=== PATIENT | male | born 1955 ===

== ENCOUNTER 2017-03-20 20:23 | Inpatient (IN) | payer OTHER ==
--- NOTE | 2017-03-20 21:30 | C.PDOC ---
History Of Present Illness Patient is a 61 y/o male, with a Hx of asthma, who presents to the ED with a complaint of SOB. Patient was seen by PMD a few days ago and was given Prednisone and Mucinex with minimal relief. Patient is currently speaking in full sentences and tolerating PO. No other physical complaints at this time. Time Seen by Provider: 03/20/17 21:30 Chief Complaint (Nursing): Shortness Of Breath History Per: Patient History/Exam Limitations: no limitations Onset/Duration Of Symptoms: Days Current Symptoms Are (Timing): Still Present Initiating Event: Upper Respiratory Illness Exacerbating Factor(s): Coughing Current Respiratory Medications: See Home Med List Severity: Moderate Pain Scale Rating Of: 4 Associated Symptoms: denies: Fever, Chills Reports Recently: Treated By A Physician Recent travel outside of the [place]: No Additional History Per: Patient Past Medical History Reviewed: Historical Data, Nursing Documentation, Vital Signs Vital Signs: Last Vital Signs Temp 98.6 F 03/20/17 20:50 Pulse 79 03/20/17 20:50 Resp 16 03/20/17 21:55 BP 157/71 H 03/20/17 20:50 Pulse Ox 99 03/20/17 21:55 - Medical History PMH: Asthma, Hypercholesterolemia Surgical History: No Surg Hx Family History: States: No Known Family Hx - Social History Hx Tobacco Use: No (former smoker) Hx Alcohol Use: Yes Hx Substance Use: No - Immunization History Hx Tetanus Toxoid Vaccination: No Hx Influenza Vaccination: Yes Hx Pneumococcal Vaccination: Yes Review Of Systems Constitutional: Negative for: Fever, Chills Eyes: Negative for: Redness ENT: Negative for: Throat Pain Cardiovascular: Negative for: Chest Pain Respiratory: Positive for: Shortness of Breath Gastrointestinal: Negative for: Nausea, Vomiting Genitourinary: Negative for: Dysuria Musculoskeletal: Negative for: Back Pain Skin: Negative for: Rash Neurological: Negative for: Weakness Psych: Negative for: Anxiety Physical Exam - Physical Exam Appears: Non-toxic, No Acute Distress Skin: Warm, Dry Head: Normacephalic Eye(s): bilateral: Normal Inspection Oral Mucosa: Moist Neck: Trachea Midline, Supple Chest: Symmetrical Cardiovascular: Rhythm Regular Respiratory: No Rales, No Rhonchi, Wheezing Gastrointestinal/Abdominal: Soft, No Tenderness, No Distention, No Guarding Back: No CVA Tenderness Extremity: Normal ROM Extremity: Bilateral: Atraumatic, Normal Color And Temperature Pulses: Left Dorsalis Pedis: Normal, Right Dorsalis Pedis: Normal Neurological/Psych: Oriented x3, Normal Speech Gait: Steady ED Course And Treatment - Laboratory Results Result Diagrams: 03/20/17 21:50 03/20/17 21:50 ECG: Interpreted By Me, Viewed By Me O2 Sat by Pulse Oximetry: 97 Pulse Ox Interpretation: Normal - Radiology CXR: Interpreted by Me, Viewed By Me CXR Interpretation: No: Infiltrates, Fracture, Pnemothorax Progress Note: Plan: EKG, CXR, and blood work ordered. Albuterol, ecotrin, medrol, and neb treatment administered. Disposition Discussed With .: Sofi Lucas Comment: accepted the pt on her service and took over the care at 11:33 PM Doctor Will See Patient In The: Hospital Counseled Patient/Family Regarding: Studies Performed, Diagnosis - Disposition Disposition: HOSPITALIZED Disposition Time: 21:30 Condition: FAIR Forms: [employer] (Portuguese) - POA Present On Arrival: Poor Glycemic Control - Clinical Impression Clinical Impression: Dyspnea, Bronchitis, Asthma exacerbation, Hyperglycemia - Scribe Statement The provider has reviewed the documentation as recorded by the Scribe Joya Pereira All medical record entries made by the Scribe were at my direction and personally dictated by me. I have reviewed the chart and agree that the record accurately reflects my personal performance of the history, physical exam, medical decision making, and the department course for this patient. I have also personally directed, reviewed, and agree with the discharge instructions and disposition. Decision To Admit - Pt Status Changed To: Hospital Disposition Of: Inpatient - Admit Certification Admit to Inpatient:: After my assessment, the patient will require hospitalization for at least two midnights. This is because of the severity of symptoms shown, intensity of services needed, and/or the medical risk in this patient being treated as an outpatient. - InPatient: Physician Admission Certification: I certify that this patient requires 2 or more midnights of care for the following reason:: After my assessment, the patient will require hospitalization for at least two midnights. This is because of the severity of symptoms shown, intensity of services needed, and/or the medical risk in this patient being treated as an outpatient. - . Bed Request Type: Regular Admitting Physician: Sofi Lucas Patient Diagnosis: Dyspnea, Bronchitis, Asthma exacerbation, Hyperglycemia
[2017-03-20] MEDS ORDERED: Aspirin 325 mg EC Tablets PO STA (21:40)
[2017-03-20] MEDS: Albuterol-Ipratrop 3 mg / 0.5 (3 ml) UD IH SCH (21:56)
[2017-03-20] MEDS ORDERED: Albuterol-Ipratrop 3 mg / 0.5 (3 ml) UD ONE (21:59)
[2017-03-20 22:01] LABS: BASO % 0.3 % (0.0-2.0); EOS # 0.2 K/uL (0.0-0.7); EOS % 1.4 % (0.0-4.0); HEMOGLOBIN 13.9 g/dL (12.0-18.0); LYMPH # 1.6 K/uL (1.0-4.3); LYMPH % 11.5 % (20.0-40.0); MEAN CELL VOLUME 94.1 fL (80.0-94.0); MEAN CORPUSCULAR HEMOGLOBIN 32.9 pg (27.0-31.0); MEAN CORPUSCULAR HGB CONC 34.9 g/dL (33.0-37.0); MEAN PLATELET VOLUME 7.9 fL (7.2-11.7); MONO # 1.3 K/uL (0.0-0.8); MONO % 9.3 % (0.0-10.0); NEUT % 77.5 % (50.0-75.0); RBC 4.24 Mil/uL (4.40-5.90); RED CELL DISTRIBUTION WIDTH 13.2 % (11.5-14.5); WHITE BLOOD COUNT 14.2 K/uL (4.8-10.8)
[2017-03-20] MEDS ORDERED: Aspirin 325 mg EC Tablets PO ONE (22:02)
[2017-03-20 22:08] LABS: VENOUS BLOOD GAS BASE EXCESS 3.7 mmol/L (0.0-2.0); VENOUS BLOOD GAS PCO2 43 mmHg (40-60); VENOUS BLOOD GAS PO2 30 mm/Hg (30-55); VENOUS BLOOD PH 7.43 (7.32-7.43)
[2017-03-20 23:02] LABS: ALB/GLOB RATIO 1.2 (1.0-2.1); ALBUMIN 3.6 g/dL (3.5-5.0); ALT/SGPT 29 U/L (21-72); AST/SGOT 32 U/L (17-59); BLOOD UREA NITROGEN 22 mg/dL (9-20); CALCIUM 8.8 mg/dl (8.6-10.4); GFR AFRICAN-AMERICAN > 60; GFR NON-AFRICAN AMERICAN > 60; MAGNESIUM 1.9 mg/dL (1.6-2.3)
[2017-03-20 23:13] LABS: B-TYPE NATRIURETIC PEPTIDE 67.3 pg/mL (0-900)
[2017-03-20] MEDS ORDERED: Piperacillin/Tazobact 3.375 gm 100 ML IVPB STA (23:29)
[2017-03-20] MEDS ORDERED: Piperacill/Tazo 3.375gm in Dex 3.375 GM/50 ML BAG IVPB STA (23:32)
[2017-03-21 05:04] VITALS: RESP 20
[2017-03-21] MEDS ORDERED: guaiFENesin DM 100 mg-10 mg/5 ml UD PO ONE (06:07)
[2017-03-21] MEDS ORDERED: Pneumococcal 23-Valent Vaccine IM ONE (06:15)
--- NOTE | 2017-03-21 06:42 | RAD ---
Chest x-ray single frontal view History: Shortness of breath. Comparison: None available. Findings: No focal infiltrate or effusion. Heart size within normal limits. Degenerative changes in the spine with paravertebral osteophytes. Degenerative changes in the bilateral acromioclavicular joint spaces. Impression: No focal infiltrate or effusion.
[2017-03-21] MEDS: (Novolin R) Insulin Human Regular 100 units/ml vial SC SCH ×4 (08:25→21:53)
[2017-03-21] MEDS ORDERED: Home Med 1 UNIT (Ramipril [Altace] 5 MG) PO SCH (10:00)
[2017-03-21] MEDS ORDERED: EMPAGLIFLOZIN PO SCH (10:00)
[2017-03-21] MEDS ORDERED: Home Med 1 UNIT (Atorvastatin [Lipitor] 20 MG) PO SCH (10:00)
[2017-03-21] MEDS ORDERED: METFORMIN HCL PO SCH (10:00)
[2017-03-21] MEDS: Enoxaparin 40 mg Syringe SC SCH (11:15)
[2017-03-21] MEDS: MethylPREDNISolone 40 mg Vial IVP SCH ×2 (11:19→18:15)
[2017-03-21] MEDS: Albuterol-Ipratrop 3 mg / 0.5 (3 ml) UD INH SCH ×2 (11:47→16:33)
[2017-03-21] MEDS: Piperacill/Tazo 3.375gm in Dex 3.375 GM/50 ML BAG IVPB SCH ×2 (14:33→21:51)
--- NOTE | 2017-03-21 15:18 | CP.PCM.CON ---
History of Present Illness - History of Present Illness History of Present Illness: reason for consultation: shortness of breath 61-year-old male with asthma presented to emergency room with worsening shortness of breath not responding to steroids and inhalers. Patient states he feels much better and wants to go home. Last peak flow 300. Denies any chest pain, denies fever chills, denies cough Past Patient History - Past Medical History & Family History Past Medical History?: Yes - Past Social History Smoking Status: Former Smoker - CARDIAC Hx Cardiac Disorders: Yes Hx Hypercholesterolemia: Yes - PULMONARY Hx Respiratory Disorders: Yes Hx Asthma: Yes - NEUROLOGICAL Hx Neurological Disorder: No - HEENT Hx HEENT Problems: No - RENAL Hx Chronic Kidney Disease: No - ENDOCRINE/METABOLIC Hx Endocrine Disorders: Yes Hx Diabetes Mellitus Type 2: Yes - HEMATOLOGICAL/ONCOLOGICAL Hx Blood Disorders: No - INTEGUMENTARY Hx Dermatological Problems: No - MUSCULOSKELETAL/RHEUMATOLOGICAL Hx Musculoskeletal Disorders: No Hx Falls: No - GASTROINTESTINAL Hx Gastrointestinal Disorders: No - GENITOURINARY/GYNECOLOGICAL Hx Genitourinary Disorders: No - PSYCHIATRIC Hx Psychophysiologic Disorder: No Hx Substance Use: No - SURGICAL HISTORY Hx Surgeries: No - ANESTHESIA Hx Anesthesia: No Meds Allergies/Adverse Reactions: Allergies Allergy/AdvReac Type Severity Reaction Status Date / Time No Known Allergies Allergy Verified 03/20/17 20:57 - Medications Medications: Current Medications Acetaminophen (Tylenol 325mg Tab) 650 mg PO Q6 PRN PRN Reason: Pain, moderate (4-7) Albuterol/Ipratropium (Duoneb 3 Mg/0.5 Mg (3 Ml) Ud) 3 ml INH RQ8 [facility] Last Admin: 03/21/17 11:47 Dose: 3 ml Aspirin (Aspirin Chewable) 81 mg PO DAILY [facility] Enalapril Maleate (Vasotec) 10 mg PO DAILY [facility] Enoxaparin Sodium (Lovenox) 40 mg SC DAILY [facility] Last Admin: 03/21/17 11:15 Dose: 40 mg Piperacillin Sod/Tazobactam Sod (Zosyn 3.375 Gm Iv Premix) 3.375 gm in 50 mls @ 100 mls/hr IVPB Q8 [facility] Last Admin: 03/21/17 14:33 Dose: 100 mls/hr Insulin Human Regular (Novolin R) 0 unit SC ACHS [facility] PRN Reason: Protocol Last Admin: 03/21/17 12:30 Dose: 3 unit Metformin HCl (Glucophage) 1,000 mg PO DAILY [facility] Last Admin: 03/21/17 11:19 Dose: 1,000 mg Methylprednisolone (Solu-Medrol) 40 mg IVP Q8H [facility] Last Admin: 03/21/17 11:19 Dose: 40 mg Pneumococcal Polyvalent Vaccine (Pneumovax 23 Vaccine) 0.5 ml IM .ONCE ONE Stop: 03/23/17 10:01 Rosuvastatin Calcium (Crestor) 10 mg PO [facility] Sitagliptin Phosphate (Januvia) 100 mg PO DAILY [facility] Last Admin: 03/21/17 10:13 Dose: 100 mg Results - Vital Signs Recent Vital Signs: Last Vital Signs Temp 97.9 F 03/21/17 04:50 Pulse 74 03/21/17 04:50 Resp 20 03/21/17 04:50 BP 127/73 03/21/17 04:50 Pulse Ox 97 03/21/17 04:50 - Labs Result Diagrams: 03/20/17 21:50 03/20/17 21:50 Labs: Laboratory Results - last 24 hr 03/20/17 03/20/17 03/20/17 21:50 21:50 22:05 WBC 14.2 H RBC 4.24 L Hgb 13.9 Hct 39.8 MCV 94.1 H MCH 32.9 H MCHC 34.9 RDW 13.2 Plt Count 349 MPV 7.9 Neut % (Auto) 77.5 H Lymph % (Auto) 11.5 L [place] % (Auto) 9.3 Eos % (Auto) 1.4 Baso % (Auto) 0.3 Neut # 11.0 H Lymph # 1.6 [place] # 1.3 H Eos # 0.2 Baso # 0.0 pO2 30 VBG pH 7.43 VBG pCO2 43 VBG HCO3 26.8 VBG Total CO2 29.8 H VBG O2 Sat (Calc) 60.9 VBG Base Excess 3.7 H VBG Potassium 3.6 Glucose 287 H Lactate 1.0 Sodium 128 L 134.0 Potassium 3.6 Chloride 96 L 102.0 Carbon Dioxide 26 Anion Gap 9 L BUN 22 H Creatinine 0.9 Est GFR ( Amer) > 60 Est GFR (Non-Af Amer) > 60 POC Glucose (mg/dL) Random Glucose 276 H Calcium 8.8 Magnesium 1.9 Total Bilirubin 0.4 AST 32 ALT 29 Alkaline Phosphatase 107 Troponin I < 0.0120 NT-Pro-B Natriuret Pep 67.3 Total Protein 6.7 Albumin 3.6 Globulin 3.1 Albumin/Globulin Ratio 1.2 Venous Blood Potassium 3.6 03/21/17 08:03 WBC RBC Hgb Hct MCV MCH MCHC RDW Plt Count MPV Neut % (Auto) Lymph % (Auto) [place] % (Auto) Eos % (Auto) Baso % (Auto) Neut # Lymph # [place] # Eos # Baso # pO2 VBG pH VBG pCO2 VBG HCO3 VBG Total CO2 VBG O2 Sat (Calc) VBG Base Excess VBG Potassium Glucose Lactate Sodium Potassium Chloride Carbon Dioxide Anion Gap BUN Creatinine Est GFR ( Amer) Est GFR (Non-Af Amer) POC Glucose (mg/dL) 276 H Random Glucose Calcium Magnesium Total Bilirubin AST ALT Alkaline Phosphatase Troponin I NT-Pro-B Natriuret Pep Total Protein Albumin Globulin Albumin/Globulin Ratio Venous Blood Potassium Assessment & Plan (1) Asthma exacerbation Status: Acute Comment: clinically much better. Switch to prednisone. Inhaled steroids. Antibiotics. Peak flow
[2017-03-22] MEDS: Albuterol-Ipratrop 3 mg / 0.5 (3 ml) UD INH SCH ×2 (00:20→08:48)
[2017-03-22] MEDS: MethylPREDNISolone 40 mg Vial IVP SCH ×2 (03:45→12:00)
--- NOTE | 2017-03-22 05:49 | HP ---
CHIEF COMPLAINT: Shortness of breath, coughing. HISTORY OF PRESENT ILLNESS: Mr. Geoffrey Rizo is a 61-year-old male with history of asthma, came to the emergency room complaining about shortness of breath. As per patient, he was seen by primary care physician 2 days ago and was given prednisone and Mucinex with minimal relief. Patient is currently speaking in full sentence and tolerating p.o. No nausea, vomiting, diarrhea. No hematuria or hematochezia. No swelling of the leg. No chest pain or palpitation. No headache. No dizziness. PAST MEDICAL HISTORY: Asthma, hypercholesterolemia. PAST SURGICAL HISTORY: None. FAMILY HISTORY: Father and mother noncontributory. SOCIAL HISTORY: History of smoking, but now no smoking. Alcohol, yes. Substance abuse, no. ALLERGIES: PATIENT IS NOT ALLERGIC TO ANY MEDICATIONS. HOME MEDICATIONS: Altace, Lantus, Lipitor, Januvia, metformin. REVIEW OF SYSTEMS: Patient is seen and examined at the bedside in his room. Still coughing with shortness of breath. No headache. No dizziness. No nausea, vomiting, diarrhea. No chest pain. No palpitation. No fever. No chills. No hematuria, hematochezia. PHYSICAL EXAMINATION: VITAL SIGNS: Temperature 98.7, pulse 88, blood pressure 120/74, respiratory rate 20. HEENT: Head; normocephalic, atraumatic. Eyes; PERRLA. Extraocular muscles intact. Conjunctivae clear. Nose patent. Mucous membranes moist. NECK: Supple. No carotid bruits, JVD, or thyromegaly. CHEST: Bilaterally symmetrical. HEART: S1 and S2 positive. LUNGS: Clear to auscultation. ABDOMEN: Soft, bowel sound present. No organomegaly. EXTREMITIES: No edema, no cyanosis. NEUROLOGICAL: The patient is awake, alert. Moving all 4 extremities. No focal deficits. LABORATORY DATA: White blood cell 14.2, hemoglobin 13.9, hematocrit 39.8, platelets 349. Sodium 128, potassium 3.6, BUN 22, creatinine 0.9, glucose 264. ASSESSMENT AND PLAN: Mr. Geoffrey Rizo is a 61-year-old male with leukocytosis, anemia, hyponatremia, hypochloremia, renal insufficiency, hyperglycemia, came with shortness of breath, exacerbation of asthma. Seen by Dr. Quoc Gray, layaway clerk. Clinically improving. Continue inhaled steroids, antibiotics, peak flow. Repeat labs. We will follow. Sofi Lucas MD
[2017-03-22] MEDS: Piperacill/Tazo 3.375gm in Dex 3.375 GM/50 ML BAG IVPB SCH (06:05)
[2017-03-22 07:01] LABS: URINE BILIRUBIN NEGATIVE (NEGATIVE); URINE BLOOD NEGATIVE (NEGATIVE); URINE CLARITY Clear (Clear); URINE COLOR Straw (YELLOW); URINE GLUCOSE (UA) 3+ mg/dL (Normal); URINE LEUKOCYTE ESTERASE NEG Leu/uL (Negative); URINE NITRATE NEGATIVE (NEGATIVE); URINE PROTEIN NEGATIVE (NEGATIVE); URINE UROBILINOGEN NORMAL mg/dL (0.2-1.0)
[2017-03-22] MEDS: (Novolin R) Insulin Human Regular 100 units/ml vial SC SCH ×2 (07:56→12:13)
[2017-03-22 08:22] LABS: BASO % 0.2 % (0.0-2.0); HEMOGLOBIN 13.7 g/dL (12.0-18.0); LYMPH # 0.6 K/uL (1.0-4.3); LYMPH % 3.8 % (20.0-40.0); MEAN CELL VOLUME 94.6 fL (80.0-94.0); MEAN CORPUSCULAR HEMOGLOBIN 31.5 pg (27.0-31.0); MEAN CORPUSCULAR HGB CONC 33.3 g/dL (33.0-37.0); MEAN PLATELET VOLUME 8.8 fL (7.2-11.7); MONO # 0.5 K/uL (0.0-0.8); MONO % 3.4 % (0.0-10.0); NEUT # 14.6 K/uL (1.8-7.0); NEUT % 92.6 % (50.0-75.0); PLATELET COUNT 403 K/uL (130-400); RBC 4.34 Mil/uL (4.40-5.90); RED CELL DISTRIBUTION WIDTH 13.6 % (11.5-14.5); WHITE BLOOD COUNT 15.8 K/uL (4.8-10.8)
[2017-03-22 08:36] LABS: IRON 70 ug/dL (49-181)
[2017-03-22 08:44] LABS: % IRON SATURATION 25 (20-55); TOTAL IRON BINDING CAPACITY 278 ug/dL (250-450)
[2017-03-22 08:47] LABS: ALB/GLOB RATIO 1.1 (1.0-2.1); ALBUMIN 3.4 g/dL (3.5-5.0); ALT/SGPT 32 U/L (21-72); AST/SGOT 16 U/L (17-59); BLOOD UREA NITROGEN 22 mg/dL (9-20); CALCIUM 8.8 mg/dl (8.6-10.4); GFR AFRICAN-AMERICAN > 60; GFR NON-AFRICAN AMERICAN > 60; HDL CHOLESTEROL 43 mg/dL (30-70)
[2017-03-22 08:54] LABS: LDL CHOLESTEROL 72 mg/dL (0-129)
[2017-03-22 09:48] VITALS: BP 132/67
[2017-03-22] MEDS: Enoxaparin 40 mg Syringe SC SCH (09:49)
[2017-03-22 09:53] LABS: FOLATE 13.4 ng/mL
[2017-03-22] MEDS ORDERED: EMPAGLIFLOZIN PO SCH (10:00)
[2017-03-22] MEDS ORDERED: METFORMIN HCL PO SCH (10:00)
[2017-03-22 10:19] VITALS: PULSE 84; TEMP 97.8; O2SAT 95
[2017-03-22 11:17] LABS: BANDS 3 % (0-2); EOSINOPHIL 1 % (0-4); LYMPHOCYTE 3 % (20-40); MONOCYTE 3 % (0-10); NEUTROPHIL 90 % (50-75); PLATELET ESTIMATE NORMAL (NORMAL); TOTAL CELLS COUNTED 100
[2017-03-22 11:19] LABS: ANISOCYTOSIS SLIGHT; HYPOCHROMIC SLIGHT; LARGE PLATELETS PRESENT; POLYCHROMIC SLIGHT; TOXIC GRANULATION PRESENT
[2017-03-22] MEDS ORDERED: Piperacillin/Tazobact 3.375 GM in Sodium Chloride 0.9% 100 ML IVPB SCH (14:00)
[2017-03-23] MEDS ORDERED: Pneumococcal 23-Valent Vaccine IM ONE (10:00)
== END 2017-03-22 14:45 | disposition left against medical advice (07) | DRG 202 ==
LOC: C.ER 20:23 → C.9E 23:31 → C.3T 03-21 04:24
PROVIDERS: ADMIT Internal Medicine; ATTEND Internal Medicine
DX: J45.901 Unspecified asthma with (acute) exacerbation (principal); E87.1 Hypo-osmolality and hyponatremia; E11.65 Type 2 diabetes mellitus with hyperglycemia; E78.00 Pure hypercholesterolemia, unspecified; Z87.891 Personal history of nicotine dependence; N28.9 Disorder of kidney and ureter, unspecified; D72.829 Elevated white blood cell count, unspecified; Z79.4 Long term (current) use of insulin

== ENCOUNTER 2018-05-14 06:42 | Observation (INO) | payer SELFPAY ==
[2018-05-14] MEDS ORDERED: Albuterol-Ipratrop 3 mg / 0.5 (3 ml) UD INH STA ×2 (07:23→07:48)
--- NOTE | 2018-05-14 07:27 | C.PDOC ---
History Of Present Illness 63 y/o male with a PMHx of diabetes and asthma, presents to the ED for evaluation of cough and congestion for 5 days. Associated with a sore throat and subjective fever. Cough is productive of yellow sputum. No other complaints. Otherwise patient denies any chest pain, SOB, nausea, vomiting, palpitations, or urinary symptoms. Time Seen by Provider: 05/14/18 07:16 Chief Complaint (Nursing): Cough, Cold, Congestion History Per: Patient History/Exam Limitations: no limitations Onset/Duration Of Symptoms: Days (x5) Current Symptoms Are (Timing): Still Present Location Of Pain: Throat Associated Symptoms: Fever, Cough, Sputum, Nasal Congestion Past Medical History Reviewed: Historical Data, Nursing Documentation, Vital Signs Vital Signs: Last Vital Signs Temp 98.5 F 05/14/18 06:48 Pulse 90 05/14/18 06:48 Resp 18 05/14/18 06:48 BP 149/60 05/14/18 06:48 Pulse Ox 95 05/14/18 06:48 - Medical History PMH: Asthma, Hypercholesterolemia Denies: Chronic Kidney Disease Family History: States: Unknown Family Hx - Social History Hx Tobacco Use: No (former smoker) Hx Alcohol Use: Yes (occasionally) Hx Substance Use: No - Immunization History Hx Tetanus Toxoid Vaccination: No Hx Influenza Vaccination: No Hx Pneumococcal Vaccination: Yes Review Of Systems Except As Marked, All Systems Reviewed And Found Negative. Constitutional: Positive for: Fever Eyes: Negative for: Vision Change ENT: Positive for: Nose Congestion, Throat Pain. Negative for: Ear Pain, Ear D ischarge Cardiovascular: Negative for: Chest Pain Respiratory: Positive for: Cough, Sputum. Negative for: Shortness of Breath Gastrointestinal: Negative for: Nausea, Vomiting, Abdominal Pain, Diarrhea Genitourinary: Negative for: Dysuria, Hematuria Musculoskeletal: Negative for: Back Pain Neurological: Negative for: Weakness, Numbness Physical Exam - Physical Exam Appears: Non-toxic, No Acute Distress Skin: Warm, Dry, No Rash Head: Atraumatic, Normacephalic Eye(s): bilateral: Normal Inspection, PERRL, EOMI Oral Mucosa: Moist Throat: Erythema (Mild pharyngeal erythema), No Exudate Neck: Normal ROM, Supple Chest: Symmetrical Cardiovascular: Rhythm Regular, No Murmur Respiratory: Decreased Breath Sounds (Diminished at the bases bilaterally), No Accessory Muscle Use, No Rhonchi, No Wheezing, Other (Speaking in full sentences) Gastrointestinal/Abdominal: Soft, No Tenderness, No Distention Extremity: Bilateral: Atraumatic, Normal Color And Temperature Pulses: Left Radial: Normal, Right Radial: Normal Neurological/Psych: Oriented x3, Normal Speech, Normal Cranial Nerves Gait: Steady ED Course And Treatment - Laboratory Results Result Diagrams: 05/14/18 08:03 05/14/18 08:03 ECG: Interpreted By Me ECG Rhythm: Sinus Rhythm Interpretation Of ECG: no ST or T wave changes Rate From EC O2 Sat by Pulse Oximetry: 95 (via NC) Pulse Ox Interpretation: Normal Medical Decision Making Medical Decision Making: Impression: Cough, Fever Initial Plan: - Flu swab - Rapid strep test - Chest x-ray - Duoneb x 1 - 50 mg PO prednisone CXR shows +infiltrate. Added on blood work, cultures, and EKG. Patient started on IV zithro and rocephin. Additional duonebs ordered. aceted by dr browne peak flow 200 sp nebss Disposition - Disposition Disposition: HOSPITALIZED Disposition Time: 11:00 Condition: STABLE - Clinical Impression Clinical Impression: Asthma, Pneumonia - Scribe Statement The provider has reviewed the documentation as recorded by the Zenia Alexander Provider Attestation: All medical record entries made by the Zenia were at my direction and personally dictated by me. I have reviewed the chart and agree that the record accurately reflects my personal performance of the history, physical exam, medical decision making, and the department course for this patient. I have also personally directed, reviewed, and agree with the discharge instructions and disposition. Decision To Admit - Pt Status Changed To: Hospital Disposition Of: Inpatient - Admit Certification Admit to Inpatient:: After my assessment, the patient will require hospitalization for at least two midnights. This is because of the severity of symptoms shown, intensity of services needed, and/or the medical risk in this patient being treated as an outpatient. - InPatient: Physician Admission Certification: I certify that this patient requires 2 or more midnights of care for the following reason:: need iv antibiotics - . Bed Request Type: Regular Admitting Physician: Junaid Browne Patient Diagnosis: Asthma, Pneumonia
[2018-05-14] MEDS ORDERED: cefTRIAXone IV 1 gm in Dextros 50 ML IVPB ONE (07:44)
[2018-05-14] MEDS ORDERED: Azithromycin 500 MG in Sodium Chloride 0.9% 250 ML IVPB STA (07:44)
[2018-05-14] MEDS ORDERED: Albuterol-Ipratrop 3 mg / 0.5 (3 ml) UD ONE (07:45)
[2018-05-14] MEDS ORDERED: Azithromycin 500mg/250ML NS 500 MG/250 ML BAG IVPB ONE (07:52)
[2018-05-14 08:12] LABS: BASO % 0.3 % (0.0-2.0); EOS % 0.2 % (0.0-4.0); HEMOGLOBIN 13.2 g/dL (12.0-18.0); LYMPH # 1.3 K/uL (1.0-4.3); LYMPH % 9.7 % (20.0-40.0); MEAN CELL VOLUME 92.7 fL (80.0-94.0); MEAN CORPUSCULAR HEMOGLOBIN 31.9 pg (27.0-31.0); MEAN CORPUSCULAR HGB CONC 34.4 g/dL (33.0-37.0); MEAN PLATELET VOLUME 8.3 fL (7.2-11.7); MONO # 1.4 K/uL (0.0-0.8); MONO % 10.9 % (0.0-10.0); NEUT # 10.4 K/uL (1.8-7.0); NEUT % 78.9 % (50.0-75.0); NRBC % 0.1 % (0.0-2.0); PLATELET COUNT 385 K/uL (130-400); RBC 4.15 Mil/uL (4.40-5.90); RED CELL DISTRIBUTION WIDTH 13.1 % (11.5-14.5); WHITE BLOOD COUNT 13.2 K/uL (4.8-10.8)
[2018-05-14 08:13] LABS: INFLUENZA A B NEGATIVE FOR FLU A/B (NEGATIVE)
[2018-05-14 08:28] LABS: ALB/GLOB RATIO 1.2 (1.0-2.1); ALBUMIN 3.5 g/dL (3.5-5.0); ALT/SGPT 43 U/L (21-72); AST/SGOT 49 U/L (17-59); BLOOD UREA NITROGEN 15 mg/dL (9-20); CALCIUM 8.7 mg/dl (8.6-10.4); GFR NON-AFRICAN AMERICAN > 60
[2018-05-14 08:30] LABS: INR 1.5
[2018-05-14 08:32] LABS: B-TYPE NATRIURETIC PEPTIDE 553 pg/mL (0-900)
[2018-05-14 08:58] LABS: BANDS 1 % (0-2); LYMPHOCYTE 10 % (20-40); MONOCYTE 13 % (0-10); NEUTROPHIL 76 % (50-75); PLATELET ESTIMATE NORMAL (NORMAL); TOTAL CELLS COUNTED 100
[2018-05-14 10:14] LABS: URINE BILIRUBIN NEGATIVE (NEGATIVE); URINE BLOOD NEGATIVE (NEGATIVE); URINE CLARITY Clear (Clear); URINE COLOR Yellow (YELLOW); URINE GLUCOSE (UA) 3+ mg/dL (Normal); URINE LEUKOCYTE ESTERASE NEG Leu/uL (Negative); URINE PROTEIN NEGATIVE (NEGATIVE)
[2018-05-14] MEDS ORDERED: Dextrose 50% SYRINGE Inj (50 ml) IV PRN (10:26)
[2018-05-14] MEDS ORDERED: Glucagon Recombinant 1 mg Inj IM PRN (10:26)
--- NOTE | 2018-05-14 10:33 | CP.PCM.HP ---
<Sal Spring - Last Filed: 05/14/18 15:14> History of Present Illness - History of Present Illness History of Present Illness: PGY-1 H&P note for Dr Junaid Strange service cc: coughing, fever Patient is a 62 year old male with past medical history of asthma and DMII that came to the ED this morning for worsening cough and subjective fever that started about 5 days. Patient states cough is productive, of yellow color, denies blood in mucus/sputum. Patient has only taken tylenol with little to no relief. Admits to pain on bilateral side of his abdomen and back, patient believes is most likely due to coughing. Patient admits to decreased appetite since thursday due to cough. Patient admits to weakness, shortness of breath. Patient's brother had similar symptoms. Denies recent travel or recent illness. denies abdominal pain, n/v/d/c, urinary symptoms or leg swelling or pain. PMD: none Pmhx: Asthma, DMII Shx: denies All: denies Meds: lantus 36 Units QHS, albuterol pump Schx: Former smokers, Quitted 6 years ago, smoked 1 pack a week for about 40 years, socially drinker (3-4 beers weekly), denies drug use Fhx: prostate CA (grandmother) Present on Admission - Present on Admission Any Indicators Present on Admission: No Review of Systems - Review of Systems All systems: reviewed and no additional remarkable complaints except Review of Systems: as stated in HPI Past Patient History - Infectious Disease Hx of Infectious Diseases: None - Past Medical History & Family History Past Medical History?: Yes - Past Social History Smoking Status: Former Smoker - CARDIAC Hx Hypercholesterolemia: Yes - PULMONARY Hx Asthma: Yes - NEUROLOGICAL Hx Neurological Disorder: No - HEENT Hx HEENT Problems: No - RENAL Hx Chronic Kidney Disease: No - ENDOCRINE/METABOLIC Hx Endocrine Disorders: Yes Hx Diabetes Mellitus Type 2: Yes - HEMATOLOGICAL/ONCOLOGICAL Hx Blood Disorders: No - INTEGUMENTARY Hx Dermatological Problems: No - MUSCULOSKELETAL/RHEUMATOLOGICAL Hx Musculoskeletal Disorders: No Hx Falls: No - GASTROINTESTINAL Hx Gastrointestinal Disorders: No - GENITOURINARY/GYNECOLOGICAL Hx Genitourinary Disorders: No - PSYCHIATRIC Hx Substance Use: No - SURGICAL HISTORY Hx Surgeries: No - ANESTHESIA Hx Anesthesia: No Meds Allergies/Adverse Reactions: Allergies Allergy/AdvReac Type Severity Reaction Status Date / Time No Known Allergies Allergy Verified 03/20/17 20:57 Physical Exam - Constitutional Appears: Non-toxic, No Acute Distress - Head Exam Head Exam: ATRAUMATIC, NORMAL INSPECTION, NORMOCEPHALIC - Eye Exam Eye Exam: EOMI, Normal appearance, PERRL - ENT Exam ENT Exam: Mucous Membranes Moist, Normal Exam - Neck Exam Neck exam: Positive for: Normal Inspection - Respiratory Exam Respiratory Exam: NORMAL BREATHING PATTERN. absent: Accessory Muscle Use, Chest Wall Tenderness Additional comments: crackles auscultated on left lower lobe - Cardiovascular Exam Cardiovascular Exam: REGULAR RHYTHM, +S1, +S2 - GI/Abdominal Exam GI & Abdominal Exam: Normal Bowel Sounds, Soft. absent: Distended - Extremities Exam Extremities exam: Positive for: full ROM, normal inspection. Negative for: tenderness - Back Exam Back exam: NORMAL INSPECTION - Neurological Exam Neurological exam: Alert, Oriented x3 - Psychiatric Exam Psychiatric exam: Normal Affect, Normal Mood - Skin Skin Exam: Dry, Intact, Normal Color, Warm Results - Vital Signs Recent Vital Signs: Last Vital Signs Temp 100.9 F H 05/14/18 09:39 Pulse 97 H 05/14/18 09:39 Resp 18 05/14/18 09:39 BP 128/64 05/14/18 09:39 Pulse Ox 93 L 05/14/18 09:39 - Labs Result Diagrams: 05/14/18 08:03 05/14/18 08:03 Labs: Laboratory Results - last 24 hr 05/14/18 05/14/18 05/14/18 07:33 08:03 08:03 WBC 13.2 H RBC 4.15 L Hgb 13.2 Hct 38.5 MCV 92.7 MCH 31.9 H MCHC 34.4 RDW 13.1 Plt Count 385 MPV 8.3 Neut % (Auto) 78.9 H Lymph % (Auto) 9.7 L Cochran % (Auto) 10.9 H Eos % (Auto) 0.2 Baso % (Auto) 0.3 Neut # (Auto) 10.4 H Lymph # (Auto) 1.3 Cochran # (Auto) 1.4 H Eos # (Auto) 0.0 Baso # (Auto) 0.0 Neutrophils % (Manual) 76 H Band Neutrophils % 1 Lymphocytes % (Manual) 10 L Monocytes % (Manual) 13 H Platelet Estimate Normal PT 16.0 H INR 1.5 APTT 35 H Sodium Potassium Chloride Carbon Dioxide Anion Gap BUN Creatinine Est GFR ( Amer) Est GFR (Non-Af Amer) Random Glucose Calcium Total Bilirubin AST ALT Alkaline Phosphatase Troponin I NT-Pro-B Natriuret Pep Total Protein Albumin Globulin Albumin/Globulin Ratio Urine Color Urine Clarity Urine pH Ur Specific Nerinx Urine Protein Urine Glucose (UA) Urine Ketones Urine Blood Urine Nitrate Urine Bilirubin Urine Urobilinogen Ur Leukocyte Esterase Urine WBC (Auto) Urine RBC (Auto) Influenza Typ A,B (EIA) Negative for flu a/b Grp A Beta Strep Ag Negative 05/14/18 05/14/18 08:03 09:56 WBC RBC Hgb Hct MCV MCH MCHC RDW Plt Count MPV Neut % (Auto) Lymph % (Auto) Cochran % (Auto) Eos % (Auto) Baso % (Auto) Neut # (Auto) Lymph # (Auto) Cochran # (Auto) Eos # (Auto) Baso # (Auto) Neutrophils % (Manual) Band Neutrophils % Lymphocytes % (Manual) Monocytes % (Manual) Platelet Estimate PT INR APTT Sodium 131 L Potassium 3.6 Chloride 96 L Carbon Dioxide 27 Anion Gap 12 BUN 15 Creatinine 0.7 L Est GFR ( Amer) > 60 Est GFR (Non-Af Amer) > 60 Random Glucose 233 H D Calcium 8.7 Total Bilirubin 0.7 AST 49 ALT 43 Alkaline Phosphatase 117 Troponin I < 0.0120 NT-Pro-B Natriuret Pep 553 Total Protein 6.6 Albumin 3.5 Globulin 3.0 Albumin/Globulin Ratio 1.2 Urine Color Yellow Urine Clarity Clear Urine pH 5.0 Ur Specific Nerinx 1.016 Urine Protein Negative Urine Glucose (UA) 3+ H Urine Ketones 1+ H Urine Blood Negative Urine Nitrate Negative Urine Bilirubin Negative Urine Urobilinogen 4.0 Ur Leukocyte Esterase Neg Urine WBC (Auto) 2 Urine RBC (Auto) 1 Influenza Typ A,B (EIA) Grp A Beta Strep Ag Assessment & Plan - Assessment and Plan (Free Text) Assessment: Patient is 62 year old male with past medical history of asthma and DMII, came to ER for productive cough, subjective fever and sore throat for the past 5 days. Chest xray shows Left lower PNA. Plan: Left lower Lobe PNA - Chest xray - consolidation of left lower lobe. small left pleural effusion. left lower lobe Pneumonia - WBC 13.2 ,febrile at 100.9 F - influenza negative - In the ED - Duoneb, 1 dose of zythormax, ceftrixone, prednisone 50 mg PO x 1 - patient reports improvement of symtpoms after ED treatment - Blood, throat and sputum cx ordered - pending results - atypical tests ordered - Mycoplasma, Step Pneumo, Legionella - f/u - Random peak flow 270 - continue NC at 2L - Meds - Rocephin 1gm IVPB Q12H - Zythromax 500mg IVPB QD - Duoneb Q6 HELIO - Solumedrol 20 mg IVP BID - tylenol 650mg PO PRN for fever Lower abdominal muscular pain - most likely due to coughing episodes - Toradol 15 mg IVP PRN for moderate pain Hx of DM - Continue home meds Lantus 36 units QHS - Accuchecks ACHS - Hypoglycemia protocol Hx of asthma - Duonebs Q6H HELIO - monitor peak flow PPX - DVT: SCDS, Lovenox 30mg SC QD - PPX: protonix 40 mg IVP QD - lactobacillus - Consist carbohydrate diet/HHD Plan discussed with Dr Alie Spring, PGY-1 - Date & Time Date: 05/14/18 Time: 07:45 <Junaid Strange H - Last Filed: 05/14/18 15:26> Results - Vital Signs Recent Vital Signs: Last Vital Signs Temp 98.4 F 05/14/18 11:10 Pulse 86 05/14/18 11:10 Resp 20 05/14/18 11:10 BP 143/70 05/14/18 11:10 Pulse Ox 95 05/14/18 13:41 - Labs Result Diagrams: 05/14/18 08:03 05/14/18 08:03 Labs: Laboratory Results - last 24 hr 05/14/18 05/14/18 05/14/18 07:33 08:03 08:03 WBC 13.2 H RBC 4.15 L Hgb 13.2 Hct 38.5 MCV 92.7 MCH 31.9 H MCHC 34.4 RDW 13.1 Plt Count 385 MPV 8.3 Neut % (Auto) 78.9 H Lymph % (Auto) 9.7 L Cochran % (Auto) 10.9 H Eos % (Auto) 0.2 Baso % (Auto) 0.3 Neut # (Auto) 10.4 H Lymph # (Auto) 1.3 Cochran # (Auto) 1.4 H Eos # (Auto) 0.0 Baso # (Auto) 0.0 Neutrophils % (Manual) 76 H Band Neutrophils % 1 Lymphocytes % (Manual) 10 L Monocytes % (Manual) 13 H Platelet Estimate Normal PT 16.0 H INR 1.5 APTT 35 H Sodium Potassium Chloride Carbon Dioxide Anion Gap BUN Creatinine Est GFR ( Amer) Est GFR (Non-Af Amer) Random Glucose Calcium Total Bilirubin AST ALT Alkaline Phosphatase Troponin I NT-Pro-B Natriuret Pep Total Protein Albumin Globulin Albumin/Globulin Ratio Urine Color Urine Clarity Urine pH Ur Specific Nerinx Urine Protein Urine Glucose (UA) Urine Ketones Urine Blood Urine Nitrate Urine Bilirubin Urine Urobilinogen Ur Leukocyte Esterase Urine WBC (Auto) Urine RBC (Auto) Influenza Typ A,B (EIA) Negative for flu a/b Grp A Beta Strep Ag Negative 05/14/18 05/14/18 08:03 09:56 WBC RBC Hgb Hct MCV MCH MCHC RDW Plt Count MPV Neut % (Auto) Lymph % (Auto) Cochran % (Auto) Eos % (Auto) Baso % (Auto) Neut # (Auto) Lymph # (Auto) Cochran # (Auto) Eos # (Auto) Baso # (Auto) Neutrophils % (Manual) Band Neutrophils % Lymphocytes % (Manual) Monocytes % (Manual) Platelet Estimate PT INR APTT Sodium 131 L Potassium 3.6 Chloride 96 L Carbon Dioxide 27 Anion Gap 12 BUN 15 Creatinine 0.7 L Est GFR ( Amer) > 60 Est GFR (Non-Af Amer) > 60 Random Glucose 233 H D Calcium 8.7 Total Bilirubin 0.7 AST 49 ALT 43 Alkaline Phosphatase 117 Troponin I < 0.0120 NT-Pro-B Natriuret Pep 553 Total Protein 6.6 Albumin 3.5 Globulin 3.0 Albumin/Globulin Ratio 1.2 Urine Color Yellow Urine Clarity Clear Urine pH 5.0 Ur Specific Nerinx 1.016 Urine Protein Negative Urine Glucose (UA) 3+ H Urine Ketones 1+ H Urine Blood Negative Urine Nitrate Negative Urine Bilirubin Negative Urine Urobilinogen 4.0 Ur Leukocyte Esterase Neg Urine WBC (Auto) 2 Urine RBC (Auto) 1 Influenza Typ A,B (EIA) Grp A Beta Strep Ag Attending/Attestation - Attestation I have personally seen and examined this patient.: Yes I have fully participated in the care of the patient.: Yes I have reviewed all pertinent clinical information: Yes Notes (Text): 05/14/18 15:22 Medical attending: Patient was seen and examined by me. Agree with the above note by the resident Reviewed also the CXRAY and the concerning area for the LLL pneumonia. He has a small WBC of 13 and reports subjective fever as well His breathing was improved in the ER Will continue with the IV rpcephin and also IV azithromycin Potentially could be discharged if he is stable tommorow. Junaid Strange
--- NOTE | 2018-05-14 10:42 | RAD ---
Date of service: 05/14/2018 HISTORY: Cough COMPARISON: 03/20/2017 TECHNIQUE: Chest PA and lateral FINDINGS: LINES AND TUBES: None. LUNG AND PLEURA: The lungs are well inflated. The right lung is clear. There is consolidation in the left lower lobe. Small left pleural effusion. No large right pleural effusion or pneumothorax. HEART AND MEDIASTINUM: The heart is not enlarged. No aortic atherosclerotic calcifications present. The hilar and mediastinal contours are within normal limits. SKELETAL STRUCTURES: The bony structures are within normal limits for the patient's age. VISUALIZED UPPER ABDOMEN: Normal. OTHER FINDINGS: None. IMPRESSION: Left lower lobe pneumonia. Follow-up after medical management is recommended to ensure complete resolution. The final report is tagged to the PA review folder.
[2018-05-14] MEDS ORDERED: Albuterol-Ipratrop 3 mg / 0.5 (3 ml) UD INH PRN (11:53)
[2018-05-14] MEDS: Albuterol-Ipratrop 3 mg / 0.5 (3 ml) UD INH SCH ×2 (13:20→20:14)
[2018-05-14] MEDS: (Novolin R) Insulin Human Regular 100 units/ml vial SC SCH ×2 (17:28→21:42)
[2018-05-14] MEDS: MethylPREDNISolone 40 mg Vial IVP SCH (17:29)
[2018-05-14] MEDS: (Lantus) Insulin Glargine, Recombinant SC SCH (21:41)
[2018-05-14] MEDS ORDERED: (Novolin R) Insulin Human Regular 100 units/ml vial SC SCH (22:00)
[2018-05-15] MEDS ORDERED: (Novolin R) Insulin Human Regular 100 units/ml vial SC STA (02:38)
[2018-05-15] MEDS: Albuterol-Ipratrop 3 mg / 0.5 (3 ml) UD INH SCH ×4 (02:54→19:19)
--- NOTE | 2018-05-15 05:16 | CP.PCM.PN ---
<SheelaIndyTraci Y - Last Filed: 05/15/18 05:13> Subjective - Date & Time of Evaluation Date of Evaluation: 05/15/18 Time of Evaluation: 06:45 - Subjective Subjective: PGY-1 Medicine Progress Note Patient was seen and examined at bedside in no acute distress. Nurse reports high blood sugars throughout the night. Patient has no new complaints; coughing unchanged. Denies chest pain, shortness of breath, abdominal pain, n/v/c/d or urinary issues. Objective - Vital Signs/Intake and Output Vital Signs (last 24 hours): Temp Pulse Resp BP Pulse Ox 97.3 F L 82 18 155/74 H 95 05/15/18 00:00 05/15/18 00:00 05/15/18 00:00 05/15/18 00:00 05/15/18 00:00 - Medications Medications: Current Medications Acetaminophen (Tylenol 325mg Tab) 650 mg PO Q6 PRN PRN Reason: Fever >100.4 F Albuterol/Ipratropium (Duoneb 3 Mg/0.5 Mg (3 Ml) Ud) 3 ml INH RQ6 HELIO Last Admin: 05/15/18 02:54 Dose: 3 ml Dextrose (Dextrose 50% Inj) 0 ml IV STAT PRN; Protocol PRN Reason: Hypoglycemia Protocol Dextrose (Glutose 15) 0 gm PO ONCE PRN; Protocol PRN Reason: Hypoglycemia Protocol Enoxaparin Sodium (Lovenox) 30 mg SC DAILY HELIO Glucagon (Glucagen Diagnostic Kit) 0 mg IM STAT PRN; Protocol PRN Reason: Hypoglycemia Protocol Azithromycin 500 mg/ Sodium (Chloride) 250 mls @ 250 mls/hr IVPB DAILY HELIO; Protocol Ceftriaxone Sodium 1 gm/ (Sodium Chloride) 100 mls @ 100 mls/hr IVPB Q12H [facility]; Protocol Last Admin: 05/15/18 05:06 Dose: 100 mls/hr Dextrose (Dextrose 5% In Water 1000 Ml) 1,000 mls @ 0 mls/hr IV .Q0M PRN; Protocol PRN Reason: Hypoglycemia Protocol Influenza Virus Vaccine (Flucelvax Quad 5432-1639 Syr) 60 mcg IM .ONCE ONE Stop: 05/16/18 10:01 Insulin Glargine (Lantus) 36 unit SC HS [facility] Last Admin: 05/14/18 21:41 Dose: 36 unit Insulin Human Regular (Novolin R) 0 unit SC ACHS [facility]; Protocol Last Admin: 05/14/18 21:42 Dose: 4 units Ketorolac Tromethamine (Toradol) 15 mg IVP Q6 PRN PRN Reason: Pain, moderate (4-7) Methylprednisolone (Solu-Medrol) 20 mg IVP BID [facility] Last Admin: 05/14/18 17:29 Dose: 20 mg Pantoprazole Sodium (Protonix Inj) 40 mg IVP DAILY [facility] - Labs Labs: 05/14/18 08:03 05/14/18 08:03 PT 16.0 SECONDS (9.7-12.2) H 05/14/18 08:03 INR 1.5 05/14/18 08:03 APTT 35 SECONDS (21-34) H 05/14/18 08:03 - Constitutional Appears: Non-toxic, No Acute Distress - Head Exam Head Exam: ATRAUMATIC, NORMAL INSPECTION, NORMOCEPHALIC - Eye Exam Eye Exam: EOMI, Normal appearance, PERRL - ENT Exam ENT Exam: Mucous Membranes Moist - Neck Exam Neck Exam: Normal Inspection - Respiratory Exam Respiratory Exam: Decreased Breath Sounds, Rales, NORMAL BREATHING PATTERN. absent: Accessory Muscle Use Additional comments: crackles in lower lobes - Cardiovascular Exam Cardiovascular Exam: REGULAR RHYTHM, +S1, +S2 - GI/Abdominal Exam GI & Abdominal Exam: Soft, Normal Bowel Sounds. absent: Tenderness - Extremities Exam Extremities Exam: Full ROM, Normal Capillary Refill. absent: Calf Tenderness - Neurological Exam Neurological Exam: Alert, Awake, Oriented x3 - Psychiatric Exam Psychiatric exam: Normal Affect, Normal Mood - Skin Skin Exam: Dry, Intact, Normal Color, Warm Assessment and Plan - Assessment and Plan (Free Text) Assessment: Patient is 62 year old male with past medical history of asthma and DMII, came to ER for productive cough, subjective fever and sore throat for the past 5 days. Chest xray shows Left lower PNA. Plan: Left lower Lobe PNA - Chest xray - consolidation of left lower lobe. small left pleural effusion. left lower lobe Pneumonia - WBC 13.2 ,febrile at 100.9 F - influenza negative - In the ED - Duoneb, 1 dose of zythormax, ceftrixone, prednisone 50 mg PO x 1 - patient reports improvement of symptoms after ED treatment - f/u Blood Cx - f/u Throat Cx - f/u Sputum Cx: gram positive cocci in chains - atypical tests ordered - Mycoplasma, Step Pneumo, Legionella - f/u - Random peak flow 270 - continue NC at 2L - Meds - Rocephin 1gm IVPB Q12H - Zythromax 500mg IVPB QD - Duoneb Q6 HELIO - Solumedrol 20 mg IVP BID - tylenol 650mg PO PRN for fever Lower abdominal muscular pain - most likely due to coughing episodes - Toradol 15 mg IVP PRN for moderate pain Hx of DM - Continue home meds Lantus 36 units QHS - Accuchecks ACHS - Hypoglycemia protocol Hx of asthma - Duonebs Q6H HELIO - monitor peak flow PPX - DVT: SCDS, Lovenox 30mg SC QD - PPX: protonix 40 mg IVP QD - lactobacillus - Consist carbohydrate diet/HHD <Strange,Peter H - Last Filed: 05/15/18 12:00> Objective - Vital Signs/Intake and Output Vital Signs (last 24 hours): Temp Pulse Resp BP Pulse Ox 97.6 F 68 20 126/66 95 05/15/18 07:49 05/15/18 07:49 05/15/18 07:49 05/15/18 07:49 05/15/18 07:49 - Medications Medications: Current Medications Acetaminophen (Tylenol 325mg Tab) 650 mg PO Q6 PRN PRN Reason: Fever >100.4 F Albuterol/Ipratropium (Duoneb 3 Mg/0.5 Mg (3 Ml) Ud) 3 ml INH RQ6 HELIO Last Admin: 05/15/18 07:20 Dose: 3 ml Dextrose (Dextrose 50% Inj) 0 ml IV STAT PRN; Protocol PRN Reason: Hypoglycemia Protocol Dextrose (Glutose 15) 0 gm PO ONCE PRN; Protocol PRN Reason: Hypoglycemia Protocol Enoxaparin Sodium (Lovenox) 30 mg SC DAILY [facility] Last Admin: 05/15/18 10:07 Dose: 30 mg Glucagon (Glucagen Diagnostic Kit) 0 mg IM STAT PRN; Protocol PRN Reason: Hypoglycemia Protocol Azithromycin 500 mg/ Sodium (Chloride) 250 mls @ 250 mls/hr IVPB DAILY [facility]; Protocol Last Admin: 05/15/18 09:34 Dose: Not Given Ceftriaxone Sodium 1 gm/ (Sodium Chloride) 100 mls @ 100 mls/hr IVPB Q12H [facility]; Protocol Last Admin: 05/15/18 05:06 Dose: 100 mls/hr Dextrose (Dextrose 5% In Water 1000 Ml) 1,000 mls @ 0 mls/hr IV .Q0M PRN; Protocol PRN Reason: Hypoglycemia Protocol Influenza Virus Vaccine (Flucelvax Quad [id number] Syr) 60 mcg IM .ONCE ONE Stop: 05/16/18 10:01 Insulin Glargine (Lantus) 36 unit SC HS [facility] Last Admin: 05/14/18 21:41 Dose: 36 unit Insulin Human Regular (Novolin R) 0 unit SC ACHS [facility]; Protocol Last Admin: 05/15/18 08:53 Dose: 6 units Ketorolac Tromethamine (Toradol) 15 mg IVP Q6 PRN PRN Reason: Pain, moderate (4-7) Methylprednisolone (Solu-Medrol) 20 mg IVP BID [facility] Last Admin: 05/15/18 10:07 Dose: 20 mg Pantoprazole Sodium (Protonix Inj) 40 mg IVP DAILY [facility] Last Admin: 05/15/18 10:07 Dose: 40 mg - Labs Labs: 05/15/18 07:16 05/15/18 07:16 PT 16.0 SECONDS (9.7-12.2) H 05/14/18 08:03 INR 1.5 05/14/18 08:03 APTT 35 SECONDS (21-34) H 05/14/18 08:03 Attending/Attestation - Attestation I have personally seen and examined this patient.: Yes I have fully participated in the care of the patient.: Yes I have reviewed all pertinent clinical information, including history, physical exam and plan: Yes Notes (Text): 05/15/18 11:57 Medical attending: Patient was seen and examined by me. Agree with the above note by the resident The patient was not in any acute distress when I came and saw. He was walking in the room. HE reports breathing is better than before, however still some coughing and sputum production We are pending the sputum culture results at this time The patient is on Rocpehin and Azithromycin No recorded fever overnight, and will see how he does maybe can be DC tomgonzález Strange
[2018-05-15] MEDS: Azithromycin 500 MG in Sodium Chloride 0.9% 250 ML IVPB SCH ×2 (06:09→09:34)
[2018-05-15 07:26] LABS: BASO % 0.1 % (0.0-2.0); HEMOGLOBIN 12.5 g/dL (12.0-18.0); LYMPH % 5.7 % (20.0-40.0); MEAN CELL VOLUME 92.9 fL (80.0-94.0); MEAN CORPUSCULAR HEMOGLOBIN 31.9 pg (27.0-31.0); MEAN CORPUSCULAR HGB CONC 34.3 g/dL (33.0-37.0); MEAN PLATELET VOLUME 8.9 fL (7.2-11.7); MONO # 1.1 K/uL (0.0-0.8); MONO % 6.6 % (0.0-10.0); NEUT # 14.8 K/uL (1.8-7.0); NEUT % 87.6 % (50.0-75.0); PLATELET COUNT 386 K/uL (130-400); RBC 3.92 Mil/uL (4.40-5.90); RED CELL DISTRIBUTION WIDTH 12.9 % (11.5-14.5); WHITE BLOOD COUNT 16.9 K/uL (4.8-10.8)
[2018-05-15 07:47] LABS: ALB/GLOB RATIO 1.1 (1.0-2.1); ALT/SGPT 64 U/L (21-72); AST/SGOT 53 U/L (17-59); BLOOD UREA NITROGEN 19 mg/dL (9-20); CALCIUM 8.7 mg/dl (8.6-10.4); GFR NON-AFRICAN AMERICAN > 60
[2018-05-15 08:50] VITALS: RESP 20
[2018-05-15] MEDS: (Novolin R) Insulin Human Regular 100 units/ml vial SC SCH ×4 (08:53→22:00)
[2018-05-15] MEDS: Enoxaparin 30 mg Syringe SC SCH (10:07)
[2018-05-15] MEDS: MethylPREDNISolone 40 mg Vial IVP SCH (10:07)
[2018-05-15 10:44] LABS: ANISOCYTOSIS SLIGHT; BANDS 3 % (0-2); HYPOCHROMIC SLIGHT; LYMPHOCYTE 7 % (20-40); MONOCYTE 7 % (0-10); NEUTROPHIL 83 % (50-75); PLATELET ESTIMATE NORMAL (NORMAL); TOTAL CELLS COUNTED 100; TOXIC GRANULATION PRESENT
[2018-05-15 10:45] LABS: LARGE PLATELETS PRESENT; POLYCHROMIC SLIGHT
[2018-05-15] MEDS: (Lantus) Insulin Glargine, Recombinant SC SCH (22:00)
[2018-05-16 00:14] VITALS: TEMP 97.5
[2018-05-16] MEDS: Albuterol-Ipratrop 3 mg / 0.5 (3 ml) UD INH SCH ×2 (01:15→07:30)
[2018-05-16 07:34] LABS: BASO % 0.4 % (0.0-2.0); EOS # 0.4 K/uL (0.0-0.7); EOS % 2.8 % (0.0-4.0); HEMOGLOBIN 12.8 g/dL (12.0-18.0); LYMPH # 1.9 K/uL (1.0-4.3); LYMPH % 13.5 % (20.0-40.0); MEAN CELL VOLUME 93.6 fL (80.0-94.0); MEAN CORPUSCULAR HEMOGLOBIN 32.2 pg (27.0-31.0); MEAN CORPUSCULAR HGB CONC 34.4 g/dL (33.0-37.0); MEAN PLATELET VOLUME 8.5 fL (7.2-11.7); MONO # 0.9 K/uL (0.0-0.8); MONO % 6.6 % (0.0-10.0); NEUT # 10.9 K/uL (1.8-7.0); NEUT % 76.7 % (50.0-75.0); NRBC % 0.1 % (0.0-2.0); RBC 3.99 Mil/uL (4.40-5.90); RED CELL DISTRIBUTION WIDTH 13.1 % (11.5-14.5); WHITE BLOOD COUNT 14.2 K/uL (4.8-10.8)
[2018-05-16 08:03] LABS: ALB/GLOB RATIO 1.1 (1.0-2.1); ALT/SGPT 57 U/L (21-72); AST/SGOT 31 U/L (17-59); BLOOD UREA NITROGEN 19 mg/dL (9-20); CALCIUM 8.7 mg/dl (8.6-10.4); GFR NON-AFRICAN AMERICAN > 60
[2018-05-16 08:11] VITALS: BP 135/55; PULSE 71; O2SAT 94
[2018-05-16] MEDS ORDERED: Pneumococcal 23-Valent Vaccine IM ONE (08:20)
[2018-05-16] MEDS ORDERED: Potassium Chloride 20 mEq ER Tab PO ONE (08:20)
[2018-05-16] MEDS: Enoxaparin 30 mg Syringe SC SCH (09:02)
[2018-05-16] MEDS: (Novolin R) Insulin Human Regular 100 units/ml vial SC SCH ×2 (09:02→12:58)
[2018-05-16] MEDS: Azithromycin 500 MG in Sodium Chloride 0.9% 250 ML IVPB SCH (09:03)
[2018-05-16] MEDS ORDERED: Influenza Vaccine 60 mcg/0.5 mL SYR (4YR UP) IM ONE (10:00)
--- NOTE | 2018-05-16 17:48 | CP.PCM.DIS ---
Provider - Provider Date of Admission: 05/14/18 08:50 Attending physician: Junaid Strange DO Time Spent in preparation of Discharge (in minutes): 32 Hospital Course - Lab Results Lab Results: Micro Results 05/14/18 17:29 Sputum Gram Stain - Final 05/14/18 17:29 Sputum Sputum Culture - Final NORMAL ORAL RONNIE 05/14/18 08:55 Blood Blood Culture - Preliminary NO GROWTH AFTER 48 HOURS 05/14/18 08:55 Blood Blood Culture - Preliminary NO GROWTH AFTER 48 HOURS 05/14/18 07:33 Throat Group A Strep Throat Culture - Final NO BETA STREP GROUP A ISOLATED. Most Recent Lab Values WBC 14.2 K/uL (4.8-10.8) H 05/16/18 07:22 RBC 3.99 Mil/uL (4.40-5.90) L 05/16/18 07:22 Hgb 12.8 g/dL (12.0-18.0) 05/16/18 07:22 Hct 37.3 % (35.0-51.0) 05/16/18 07:22 MCV 93.6 fL (80.0-94.0) 05/16/18 07:22 MCH 32.2 pg (27.0-31.0) H 05/16/18 07:22 MCHC 34.4 g/dL (33.0-37.0) 05/16/18 07:22 RDW 13.1 % (11.5-14.5) 05/16/18 07:22 Plt Count 472 K/uL (130-400) H 05/16/18 07:22 MPV 8.5 fL (7.2-11.7) 05/16/18 07:22 Neut % (Auto) 76.7 % (50.0-75.0) H 05/16/18 07:22 Lymph % (Auto) 13.5 % (20.0-40.0) L 05/16/18 07:22 [place] % (Auto) 6.6 % (0.0-10.0) 05/16/18 07:22 Eos % (Auto) 2.8 % (0.0-4.0) 05/16/18 07:22 Baso % (Auto) 0.4 % (0.0-2.0) 05/16/18 07:22 Neut # (Auto) 10.9 K/uL (1.8-7.0) H 05/16/18 07:22 Lymph # (Auto) 1.9 K/uL (1.0-4.3) 05/16/18 07:22 [place] # (Auto) 0.9 K/uL (0.0-0.8) H 05/16/18 07:22 Eos # (Auto) 0.4 K/uL (0.0-0.7) 05/16/18 07:22 Baso # (Auto) 0.0 K/uL (0.0-0.2) 05/16/18 07:22 Neutrophils % (Manual) 83 % (50-75) H 05/15/18 07:16 Band Neutrophils % 3 % (0-2) H 05/15/18 07:16 Lymphocytes % (Manual) 7 % (20-40) L 05/15/18 07:16 Monocytes % (Manual) 7 % (0-10) 05/15/18 07:16 Toxic Granulation Present 05/15/18 07:16 Platelet Estimate Normal (NORMAL) 05/15/18 07:16 Large Platelets Present 05/15/18 07:16 Polychromasia Slight 05/15/18 07:16 Hypochromasia (manual) Slight 05/15/18 07:16 Anisocytosis (manual) Slight 05/15/18 07:16 PT 16.0 SECONDS (9.7-12.2) H 05/14/18 08:03 INR 1.5 05/14/18 08:03 APTT 35 SECONDS (21-34) H 05/14/18 08:03 Sodium 135 mmol/L (132-148) 05/16/18 07:22 Potassium 3.2 mmol/L (3.6-5.2) L 05/16/18 07:22 Chloride 100 mmol/L (98-107) 05/16/18 07:22 Carbon Dioxide 28 mmol/L (22-30) 05/16/18 07:22 Anion Gap 10 (10-20) 05/16/18 07:22 BUN 19 mg/dL (9-20) 05/16/18 07:22 Creatinine 0.7 mg/dL (0.8-1.5) L 05/16/18 07:22 Est GFR ( Amer) > 60 05/16/18 07:22 Est GFR (Non-Af Amer) > 60 05/16/18 07:22 POC Glucose (mg/dL) 286 mg/dL (65-110) H 05/16/18 11:05 Random Glucose 163 mg/dL (75-110) H D 05/16/18 07:22 Calcium 8.7 mg/dl (8.6-10.4) 05/16/18 07:22 Total Bilirubin 0.2 mg/dL (0.2-1.3) 05/16/18 07:22 AST 31 U/L (17-59) 05/16/18 07:22 ALT 57 U/L (21-72) 05/16/18 07:22 Alkaline Phosphatase 92 U/L (38-126) 05/16/18 07:22 Troponin I < 0.0120 ng/mL (0.00-0.120) 05/14/18 08:03 NT-Pro-B Natriuret Pep 553 pg/mL (0-900) 05/14/18 08:03 Total Protein 5.7 g/dL (6.3-8.3) L 05/16/18 07:22 Albumin 3.0 g/dL (3.5-5.0) L 05/16/18 07:22 Globulin 2.8 gm/dL (2.2-3.9) 05/16/18 07:22 Albumin/Globulin Ratio 1.1 (1.0-2.1) 05/16/18 07:22 Urine Color Yellow (YELLOW) 05/14/18 09:56 Urine Clarity Clear (Clear) 05/14/18 09:56 Urine pH 5.0 (5.0-8.0) 05/14/18 09:56 Ur Specific [place] 1.016 (1.003-1.030) 05/14/18 09:56 Urine Protein Negative mg/dL (NEGATIVE) 05/14/18 09:56 Urine Glucose (UA) 3+ mg/dL (Normal) H 05/14/18 09:56 Urine Ketones 1+ mg/dL (NEGATIVE) H 05/14/18 09:56 Urine Blood Negative (NEGATIVE) 05/14/18 09:56 Urine Nitrate Negative (NEGATIVE) 05/14/18 09:56 Urine Bilirubin Negative (NEGATIVE) 05/14/18 09:56 Urine Urobilinogen 4.0 mg/dL (0.2-1.0) 05/14/18 09:56 Ur Leukocyte Esterase Neg [place]/uL (Negative) 05/14/18 09:56 Urine WBC (Auto) 2 /hpf (0-5) 05/14/18 09:56 Urine RBC (Auto) 1 /hpf (0-3) 05/14/18 09:56 Influenza Typ A,B (EIA) Negative for flu a/b (NEGATIVE) 05/14/18 07:33 Ur L.pneumophila Ag Negative (NEGATIVE) 05/14/18 17:29 Grp A Beta Strep Ag Negative (NEGATIVE) 05/14/18 07:33 S. pneumoniae Antigen Negative (NEGATIVE) 05/14/18 15:57 - Hospital Course Hospital Course: History and Physical - Patient is a 62 year old male with past medical history of asthma and DMII that came to the ED this morning for worsening cough and subjective fever that started about 5 days. Patient states cough is productive, of yellow color, denies blood in mucus/sputum. Patient has only taken tylenol with little to no relief. Admits to pain on bilateral side of his abdomen and back, patient believes is most likely due to coughing. Patient admits to decreased appetite since thursday due to cough. Patient admits to weakness, shortness of breath. Patient's brother had similar symptoms. Denies recent travel or recent illness. denies abdominal pain, n/v/d/c, urinary symptoms or leg swelling or pain. Hospital Course - Patient was admitted for community acquired pneumonia. CXR showed left lower lobe pneumonia. Patient was started on IV Azithromycin and IV Rocephin. Patient was also started on IV solumedrol. Patient did have elevated blood sugars during hospital stay. Which improved once IV solumedrol was tapered down. We also started him back on his home Insulin regimen for diabetes. Blood cultures, urine cultures, throat cultures were negative. Urine legionella, urine strep and influenza negative as well. On day of discharge patient was doing well. He was ambulating and tolerating diet. Shortness of breath and cough had improved. Leukocytosis was trendign down. Patient was medically stable for discharge home. Patient discharged with PO antibiotics and was advised to establish care at the [facility] for follow up. All questions and concerns were addressed. Discharge Diagnosis - Left lower lobe pneumonia Discharge Medications - Prednisone 10mg PO x 5 days Ciprofloxacin 250mg PO BID x 4 days Tessalon Pearles 100mg PO TID x 4 days Discharge Exam - Head Exam Head Exam: ATRAUMATIC, NORMAL INSPECTION, NORMOCEPHALIC - Eye Exam Eye Exam: EOMI, Normal appearance Pupil Exam: NORMAL ACCOMODATION - ENT Exam ENT Exam: Mucous Membranes Moist - Respiratory Exam Respiratory Exam: Rhonchi, NORMAL BREATHING PATTERN. absent: Rales, Wheezes, Respiratory Distress - Cardiovascular Exam Cardiovascular Exam: REGULAR RHYTHM, +S1, +S2 - GI/Abdominal Exam GI & Abdominal Exam: Normal Bowel Sounds, Soft. absent: Guarding, Rebound, Rigid, Tenderness - Extremities Exam Extremities exam: pedal pulses present - Back Exam Back exam: NORMAL INSPECTION - Neurological Exam Neurological exam: Alert, Oriented x3 - Psychiatric Exam Psychiatric exam: Normal Affect, Normal Mood - Skin Skin Exam: Dry, Normal Color, Warm Discharge Plan - Discharge Medications Prescriptions: Benzonatate [Tessalon Perles] 100 mg PO TID PRN #12 sgl PRN Reason: Cough Ciprofloxacin HCl [Cipro] 250 mg PO BID #8 tablet Prednisone 10 mg PO DAILY #4 tab.ds.pk - Follow Up Plan Condition: STABLE Disposition: HOME/ ROUTINE Instructions: Asthma, Adult (DC), Pneumonia, Adult (DC) Additional Instructions: Patient is cleared for discharge home Please continue antibiotics to completion Please follow up with PMD within 1 week, you can establish care at the [facility] if you do not have one If symptoms worsen, please return to the emergency department Referrals: [facility] [Outside] Non [facility] Provider, [Non-Staff] -
[2018-05-17] MEDS ORDERED: Influenza Vaccine 60 mcg/0.5 mL SYR (4YR UP) IM ONE (10:00)
--- NOTE | 2018-05-18 21:59 | CARD ---
APPROVED REPORT Date of service: 05/14/2018 EKG Measurement Heart [id number] <Conclusion> Normal sinus rhythm Possible Left atrial enlargement Borderline ECG
== END 2018-05-16 13:36 | disposition home or self-care (01) ==
LOC: C.ER 06:42 → SUPCPDRO 06:42 → C.9E 08:50 → C.5S 10:05
PROVIDERS: ADMIT Hospitalist; ATTEND Hospitalist
DX: J18.1 Lobar pneumonia, unspecified organism (principal); J45.909 Unspecified asthma, uncomplicated; E11.9 Type 2 diabetes mellitus without complications; Z87.891 Personal history of nicotine dependence; E78.00 Pure hypercholesterolemia, unspecified
CPT/HCPCS: 36415; 71046; 80053; 81001; 82948; 83880; 84484; 85025; 85610; 85730; 86317; 86738; 87040; 87070; 87430; 87449; 87804; 90732; 93005; 94150; 94640; 96365; 96367; 96372; 96375; 96376; 99285; C9113; G0009; G0378; J0456; J0696; J1650; J2920; J7050; J7070